=== PATIENT | female | born 1990 | race Caucasian/White ===

== ENCOUNTER 2021-08-24 12:45 | Inpatient (IN) | payer OTHER ==
[~2021-08-24] VITALS: Ht 165.1 cm; Wt 91.7 kg
[2021-08-24] MEDS: **hydrALAZINE HCL** 25 MG TAB PO SCH ×3 (12:00→23:47)
[2021-08-24] MEDS ORDERED: ONDANSETRON 4 MG TAB PO PRN (12:50)
[2021-08-24] MEDS ORDERED: ACETAMINOPHEN TAB 650MG DOSE (2X325MG) PO PRN (12:50)
[2021-08-24 13:15] VITALS: BP 169/112
[2021-08-24] MEDS ORDERED: ASPI81CH33 PO (13:26)
[2021-08-24] MEDS ORDERED: ENOX40IN3 SC (13:26)
[2021-08-24] MEDS ORDERED: AMLO1TAB25 PO (13:26)
[2021-08-24] MEDS ORDERED: DOCU100C16 PO (13:26)
[2021-08-24] MEDS ORDERED: DICL1GEL TOP (13:26)
[2021-08-24] MEDS ORDERED: HYDR-3490 PO (13:26)
[2021-08-24] MEDS ORDERED: PLAV1TAB2 PO (13:26)
[2021-08-24] MEDS ORDERED: MIRT1TAB PO (13:26)
[2021-08-24] MEDS ORDERED: ATOR80TA59 PO (13:26)
[2021-08-24] MEDS ORDERED: LISI40TA4 PO (13:26)
[2021-08-24] MEDS ORDERED: CARV6.25 PO (13:26)
[2021-08-24 14:00] VITALS: BP 160/100
--- NOTE | 2021-08-24 14:00 | HPEPDOC ---
Global Logistics Manager Note DATE OF ADMISSION: 08-24-21 DATE OF SERVICE: 08-24-21 TIME OF ADMISSION: Please refer to physician's admission order. SOURCE OF ADMISSION INFORMATION: [facility] record and patient CHIEF COMPLAINT: right MCA stroke with hemiparesis HISTORY OF PRESENT ILLNESS: 31F pmh obesity, current smoker, HTN (non-compliant with meds), HLD, ETOH-use disorder presented to [facility] on 08-14-21 with LUE weakness and paresthesias with difficulty speaking. She was diagnosed with a right piña radiate ischemic infarct in the setting of hypertensive emergency. She was given IV blood pressure medications, started on ASA and Plavix and followed by cariology for difficult to control blood pressures. She was diagnosed with pro bable sleep apnea and given a CPAP machine. ECHO was performed showing no interatrial shunt and signs of heart failure. She endorsed a feeling of depression and was evaluated by Psychiatry who started her on Remeron. She had persistent functional limitations in her left arm and difficulty with mobility and deemed medically appropriate for discharge to ARU on 08-24-21 REVIEW OF SYSTEMS: The following is a completed review of systems and has been reviewed. Review of systems otherwise unremarkable. PAIN: Patient self reports no pain EYES: No recent vision changes EARS, NOSE, & THROAT: No throat pain, or dysphagia, or rhinorrhea CARDIOVASCULAR: Denies chest pain or palpitations PULMONARY: Denies shortness of breath GASTROINTESTINAL: Denies constipation/diarrhea GENITOURINARY: denies dysuria MUSCULOSKELETAL: left sided hemiparesis NEUROLOGICAL:left sided hemiparesis with paresthesias HEMATOLOGICAL: denies easy bruising SKIN: denies rash PSYCHIATRIC: +depressed All other review of systems found to be negative. PAST MEDICAL HISTORY: as per HPI PAST SURGICAL HISTORY: none ALLERGIES: Please see below. MEDICATIONS: Please see below. FAMILY HISTORY: Cardiac SOCIAL HISTORY: Daily etoh/smoking/marijuana DIET:low sodium PHYSICAL EXAMINATION: VITAL SIGNS: Please see below. GENERAL: Flat affect, cooperative. No acute distress. HEENT: [PERRL. Extraocular movements intact. Clear conjunctiva, no significant facial droop CARDIOVASCULAR: Regular rate and rhythm. No murmurs, rubs, or gallops LUNGS: Clear to auscultation bilaterally. No wheezes. No rhonchi ABDOMEN: Soft, nontender, nondistended. Positive bowel sounds. Normal active bowel sounds NEUROLOGICAL: Alert and oriented times three. Cranial nerves II through XII grossly intact. Sensation decreased to light touch in non-dermatomal pattern LUE EXTREMITIES: 5\5 strength RUE, 3/5 strength LUE 5\5 strength right lower extremity. 5/5 strength in left lower extremity. LABORATORY DATA: Please see below. IMAGING:Imaging documentation personally reviewed by record FUNCTIONAL STATUS: Premorbid: Independent with all activities of daily life as well as mobility On Admission: Min assist for bed mobility, functional transfers, ambulation, dressing, toileting GOALS: Mod-I for bed mobility, functional transfers, ambulation, dressing, toile ting, bathing ASSESSMENT:31-year-old F with past medical history of HTN and HLD who presents status post right MCA ischemic stroke PLAN: 1. REhab- PT/OT advance mobility and ADls, strengthen/stretch/maintain rom all 4 limbs, eval for LUE bracing -MELT DOWN FURNACE OPERATOR for cog and swallow 2. Neuro- s/p right MCA ischemic infarct in setting of hypertensive emergency, cont optimal BP management and secondary stroke prevention measures of ASAmg daily and Plavix 75mg daily (21 days total), cont statin -CPAP for sleep apnea 3. cArdiac- hx of HTN cont BP meds, hydalazine ordered as well -HLD cont statin -obesity, will refer to gps field data collector for weight loss -medicine consulted to assist in overall management 4. Resp- probable SHIRLEY, CPAP at night, will need referral for CPAP machine upon d/c -monitor for infection 5. GI ppx- protonix 6. DVT ppx- heparin and TEDs 7. Psych cont Remeron for depression/insomnia 8. Pain- tyleneol prn 9. DIspo- TBD POST ADMISSION PHYSICIAN EVALUATION: Medical and functional status: Description of medical status, medical assessment: As above. Rehabilitation diagnosis and current and prior cold morbid medical conditions as above. Risk of complications and plans to mitigate them as above. Description of functional status current status is as above. Prior status as above. Status compared to preadmission: There are no clinically significant differences between the patient's current status and the information described on the preadmission screening document. Treatment plan anticipated: Treatment plan is as described above. Required disciplines including physical therapy, occupational therapy, others as noted above. Intensity of services: 3 hours a day, 6 days a week. Special considerations: There are no specific special or safety considerations that would likely preclude immediate implementation of an intensive rehabilitation program or subsequently influence the plan of care. ATTESTATION: Considering all the information above, it is my best judgment that this patient requires intensive rehabilitation therapy as described above and an inpatient hospital environment due to the complexity of nursing, medical, and rehabilitation needs required by the patient. Furthermore, this patient can reasonably be expected to participate in an benefit from an inpatient rehabilitation stay with an interdisciplinary team approach to the delivery of rehabilitation care under the direction and supervision of rehabilitation physician. PROGNOSIS: good ESTIMATED LENGTH OF STA: 10-14 days. PROJECTED DISCHARGE DESTINATION: Home with family support and any durable medical equipment required to increase functional safety and mobility. TIME SPENT COUNSELING AND COORDINATING INITIAL CARE: Greater than 70 minutes. Vital Signs Vital Signs Date Time Temp Pulse Resp B/P (MAP) Pulse Ox O2 Delivery O2 Flow Rate FiO2 08/24/21 14:00 96.9 85 18 160/100 (120) 96 Home Medications Scheduled Amlodipine Besylate (Amlodipine Besylate) 10 Mg Tablet, 10 MG PO DAILY, (Reported) Aspirin (Aspirin) 81 Mg Tab.chew, 81 MG PO DAILY, (Reported) Atorvastatin Calcium (Atorvastatin Calcium) 80 Mg Tablet, 80 MG PO QHS, (Reported) Carvedilol (Carvedilol) 6.25 Mg Tablet, 6.25 MG PO BID, (Reported) Clopidogrel Bisulfate (Plavix) 75 Mg Tablet, 75 MG PO DAILY, (Reported) Diclofenac Sodium (Diclofenac Sodium) 3% 100GM Gel..gram., 1 APLCT TOP QID, (Reported) APPLY TO AFFECTED AREAS ON BACK Docusate Sodium (Docusate Sodium) 100 Mg Capsule, 100 MG PO BID, (Reported) Enoxaparin Sodium (Enoxaparin Sodium) 40 Mg/0.4 Ml Syringe, 40 MG SC DAILY, (Reported) Hydrochlorothiazide (Hydrochlorothiazide) 25 Mg Tablet, 25 MG PO DAILY, (Reported) Lisinopril (Lisinopril) 40 Mg Tablet, 40 MG PO DAILY, (Reported) Mirtazapine (Mirtazapine) 7.5 Mg Tablet, 7.5 MG PO QHS, (Reported) Allergies Coded Allergies: No Known Allergies (Unverified , 08/24/21) A-FIB/CHADSVASC A-FIB History Current/History of A-Fib/PAF?: No Current PO Anticoag Therapy: No DONAHUE-JOCELYNE,ROBEL MD Aug 24, 2021 14:00
[2021-08-24] MEDS: REMEDY PHYTOPLEX Z-GUARD PASTE 113GM TUBE (FROM STOREROOM PRODUCT) TOP SCH ×2 (16:00→21:00)
[2021-08-24] MEDS: THIAMINE 100 MG TAB PO SCH (17:00)
[2021-08-24] MEDS: PANTOPRAZOLE 40MG TAB (PROTONIX) PO SCH (17:00)
[2021-08-24 20:00] VITALS: BP 134/98
[2021-08-24] MEDS: SENNA 8.6 MG TAB (SENOKOT) PO SCH (21:00)
[2021-08-24] MEDS: DOCUSATE SODIUM 100MG CAPSULE PO SCH (21:00)
[2021-08-24] MEDS: CARVedilol 6.25 MG TAB PO SCH (21:19)
[2021-08-24] MEDS: MIRTAZAPINE 7.5MG PER 1/2 TABLET PO SCH (21:20)
[2021-08-24] MEDS: ATORVASTATIN 20 MG TAB PO SCH (21:20)
[2021-08-25] MEDS: **hydrALAZINE HCL** 25 MG TAB PO SCH ×3 (05:44→18:20)
[2021-08-25 06:00] VITALS: BP 139/96
[2021-08-25 08:08] LABS: BASO # 0.1 10^3/uL (0.0-0.2); BASO % 0.9 % (0.0-1.0); EOS # 0.3 10^3/uL (0.0-0.5); EOS % 2.9 % (0.0-3.0); HEMATOCRIT 53.1 % (36.0-47.0); HEMOGLOBIN 17.2 g/dl (12.0-15.5); LYMPH # 2.3 10^3/uL (1.5-5.0); LYMPH % 23.2 % (24.0-44.0); MEAN CORPUSCULAR HEMOGLOBIN 28.3 pg (27.0-33.0); MEAN CORPUSCULAR HGB CONC 32.4 g/dl (32.0-36.5); MEAN CORPUSCULAR VOLUME 87.3 fl (80.0-96.0); MONO % 9.4 % (2.0-8.0); NEUTROPHILS # 6.4 10^3/uL (1.5-8.5); NEUTROPHILS % 63.3 % (36.0-66.0); PLATELET COUNT, AUTOMATED 294 10^3/uL (150-450); RED BLOOD COUNT 6.08 10^6/uL (4.00-5.40); WHITE BLOOD COUNT 10.1 10^3/uL (4.0-10.0)
[2021-08-25 08:26] LABS: ALBUMIN 3.8 GM/DL (3.2-5.2); ALT/SGPT 56 U/L (12-78); BILIRUBIN,TOTAL 0.5 MG/DL (0.2-1.0); BLOOD UREA NITROGEN 32 MG/DL (7-18); CALCIUM LEVEL 10.1 MG/DL (8.5-10.1); CARBON DIOXIDE LEVEL 28 MEQ/L (21-32); CHLORIDE LEVEL 103 MEQ/L (98-107); CREATININE FOR GFR 1.08 MG/DL (0.55-1.30); GLOMERULAR FILTRATION RATE > 60.0 (>60); GLUCOSE, FASTING 98 MG/DL (70-100); POTASSIUM SERUM 4.6 MEQ/L (3.5-5.1); SODIUM LEVEL 137 MEQ/L (136-145); TOTAL PROTEIN 7.3 GM/DL (6.4-8.2)
[2021-08-25] MEDS: REMEDY PHYTOPLEX Z-GUARD PASTE 113GM TUBE (FROM STOREROOM PRODUCT) TOP SCH ×3 (09:00→21:00)
[2021-08-25] MEDS: DOCUSATE SODIUM 100MG CAPSULE PO SCH ×2 (09:00→21:00)
[2021-08-25] MEDS ORDERED: HEPARIN SOD (PORCINE) 5000UNITS/ML 1ML VIAL/SYRINGE SC SCH (09:00)
[2021-08-25] MEDS: ASPIRIN 81MG ENTERIC TABLET PO SCH (09:14)
[2021-08-25] MEDS: CLOPIDOGREL 75 MG TAB PO SCH (09:14)
[2021-08-25] MEDS: CARVedilol 6.25 MG TAB PO SCH ×2 (09:14→21:04)
[2021-08-25] MEDS: PANTOPRAZOLE 40MG TAB (PROTONIX) PO SCH (09:14)
[2021-08-25] MEDS: lisinopriL 40 MG TAB PO SCH (09:14)
[2021-08-25] MEDS: THIAMINE 100 MG TAB PO SCH (09:14)
--- NOTE | 2021-08-25 10:00 | IPNPDOC ---
PM&R Progress Note Distance Learning Program Coordinator Progress Note DATE OF ADMISSION: Aug 24, 2021 at 12:52 INPATIENT REHABILITATION ADMISSION DAY: # SUBJECTIVE: Patient is a -year-old with . ALLERGIES: See Below MEDICATIONS: Reviewed, see below. OBJECTIVE: VITAL SIGNS: Please see below. PHYSICAL EXAMINATION: GENERAL: [Cachectic, well developed, sitting up in bed, no acute distress]. HEENT: [Normocephalic, atraumatic]. [No facial droop]. [Poor dentition, missing teeth. PERRL, EOMI]. CARDIOVASCULAR: [S1, S2, irregular rate]. [No lower limb edema or calf tenderness]. LUNGS: [Decreased breath sounds, coarse throughout]. ABDOMEN: [Soft, nontender, nondistended. Normoactive bowel sounds throughout]. MUSCULOSKELETAL: MMT: /5 strength proximally bilateral shoulder abduction, forward flexion and bilateral hip flexion. /5 strength bilateral elbow flexion, knee flexion, /5 bilateral elbow extension and knee extension. /5 reel fed printer, dorsiflexion, plantar flexion. NEUROLOGICAL: [Alert and oriented times three]. [Answers all question appropriately]. SKIN: . LABORATORY DATA: Reviewed. Please see below. MICROBIOLOGY: Please see below. IMAGING: ASSESSMENT AND PLAN: 1. . 2. . 3. . TIME SPENT: Chart Review, examination and documentation minutes. Allergies Coded Allergies: No Known Allergies (Unverified , 08/24/21) Vital Signs Vital Signs Date Time Temp Pulse Resp B/P (MAP) Pulse Ox O2 Delivery O2 Flow Rate FiO2 08/25/21 09:14 139/96 08/25/21 06:00 97.4 85 20 98 Room Air Laboratory Data CBC/BMP Laboratory Tests 08/25/21 07:47 Labs 24H Laboratory Tests 2 08/25/21 07:47: Immature Granulocyte % (Auto) 0.3, Neutrophils (%) (Auto) 63.3, Lymphocytes (%) (Auto) 23.2L, Monocytes (%) (Auto) 9.4H, Eosinophils (%) (Auto) 2.9, Basophils (%) (Auto) 0.9, Neutrophils # (Auto) 6.4, Lymphocytes # (Auto) 2.3, Monocytes # (Auto) 1.0H, Eosinophils # (Auto) 0.3, Basophils # (Auto) 0.1, Nucleated Red Blood Cells % (auto) 0.0, Anion Gap 6L, Glomerular Filtration Rate > 60.0, Calcium Level 10.1, Total Bilirubin 0.5, Aspartate Amino Transf (AST/SGOT) 27, Alanine Aminotransferase (ALT/SGPT) 56, Alkaline Phosphatase 83, Total Protein 7.3, Albumin 3.8, Albumin/Globulin Ratio 1.1L Current Medications Current Medications Current Medications Medications (Trade) Dose Ordered Sig/Oanh Route PRN Reason Start Time Stop Time Status Last Admin Dose Admin Acetaminophen (Tylenol Tab) 650 mg Q4HP PRN PO fever/MILD PAIN (PS 1-4) 08/24/21 12:50 Amlodipine Besylate (Norvasc) 10 mg DAILY PO 08/25/21 09:00 08/25/21 09:14 Aspirin (Ecotrin) 81 mg DAILY PO 08/25/21 09:00 08/25/21 09:14 Atorvastatin Calcium (Lipitor) 80 mg QHS PO 08/24/21 21:00 08/24/21 21:20 Carvedilol (COReg) 6.25 mg BID PO 08/24/21 21:00 08/25/21 09:14 Clopidogrel Bisulfate (PLAVix) 75 mg DAILY PO 08/25/21 09:00 08/25/21 09:14 Docusate Sodium (Colace) 100 mg BID PO 08/24/21 21:00 Heparin Sodium (Porcine) (Heparin) 5,000 units Q12H SC 08/25/21 09:00 08/25/21 09:15 Hydralazine HCl (Apresoline) 25 mg Q6H PO 08/24/21 12:00 08/25/21 05:44 Hydrochlorothiazide (Hydrodiuril) 25 mg DAILY PO 08/25/21 09:00 08/25/21 09:14 Lisinopril (Prinivil) 40 mg DAILY PO 08/25/21 09:00 08/25/21 09:14 Mirtazapine (Remeron) 7.5 mg QHS PO 08/24/21 21:00 08/24/21 21:20 Ondansetron HCl (Zofran) 4 mg Q6HP PRN PO NAUSEA 08/24/21 12:50 Pantoprazole Sodium (Protonix) 40 mg DAILY PO 08/24/21 09:00 08/25/21 09:14 Senna (Senokot) 1 tab QHS PO 08/24/21 21:00 Thiamine HCl (Thiamine HCl) 100 mg DAILY PO 08/24/21 09:00 08/25/21 09:14 ROBEL GUZMAN MD Aug 25, 2021 09:59
[2021-08-25 14:00] VITALS: BP 124/85
[2021-08-25] MEDS ORDERED: ALPRAZolam 0.25 MG TAB PO PRN (17:15)
[2021-08-25] MEDS ORDERED: ALPRAZolam 0.5 MG TAB PO ONE (17:15)
[2021-08-25 21:00] VITALS: BP 145/90
[2021-08-25] MEDS: SENNA 8.6 MG TAB (SENOKOT) PO SCH (21:00)
[2021-08-25] MEDS: MIRTAZAPINE 7.5MG PER 1/2 TABLET PO SCH (21:03)
[2021-08-25] MEDS: ATORVASTATIN 20 MG TAB PO SCH (21:03)
[2021-08-26] MEDS: **hydrALAZINE HCL** 25 MG TAB PO SCH ×4 (00:17→17:23)
[2021-08-26 06:00] VITALS: BP 118/68
[2021-08-26] MEDS: DOCUSATE SODIUM 100MG CAPSULE PO SCH ×2 (07:52→20:11)
[2021-08-26] MEDS: ASPIRIN 81MG ENTERIC TABLET PO SCH (08:31)
[2021-08-26] MEDS: PANTOPRAZOLE 40MG TAB (PROTONIX) PO SCH (08:31)
[2021-08-26] MEDS: lisinopriL 40 MG TAB PO SCH (08:32)
[2021-08-26] MEDS: REMEDY PHYTOPLEX Z-GUARD PASTE 113GM TUBE (FROM STOREROOM PRODUCT) TOP SCH ×3 (08:32→20:12)
[2021-08-26] MEDS: CLOPIDOGREL 75 MG TAB PO SCH (08:32)
[2021-08-26] MEDS: THIAMINE 100 MG TAB PO SCH (08:32)
[2021-08-26] MEDS: CARVedilol 6.25 MG TAB PO SCH ×2 (08:32→20:46)
--- NOTE | 2021-08-26 10:36 | IPNPDOC ---
PM&R Progress Note Tabulating Supervisor Progress Note DATE OF ADMISSION: Aug 24, 2021 at 12:52 INPATIENT REHABILITATION ADMISSION DAY: # SUBJECTIVE: Patient is a -year-old with . ALLERGIES: See Below MEDICATIONS: Reviewed, see below. OBJECTIVE: VITAL SIGNS: Please see below. PHYSICAL EXAMINATION: GENERAL: [Cachectic, well developed, sitting up in bed, no acute distress]. HEENT: [Normocephalic, atraumatic]. [No facial droop]. [Poor dentition, missing teeth. PERRL, EOMI]. CARDIOVASCULAR: [S1, S2, irregular rate]. [No lower limb edema or calf tenderness]. LUNGS: [Decreased breath sounds, coarse throughout]. ABDOMEN: [Soft, nontender, nondistended. Normoactive bowel sounds throughout]. MUSCULOSKELETAL: MMT: /5 strength proximally bilateral shoulder abduction, forward flexion and bilateral hip flexion. /5 strength bilateral elbow flexion, knee flexion, /5 bilateral elbow extension and knee extension. /5 nursing informatics specialist, dorsiflexion, plantar flexion. NEUROLOGICAL: [Alert and oriented times three]. [Answers all question appropriately]. SKIN: . LABORATORY DATA: Reviewed. Please see below. MICROBIOLOGY: Please see below. IMAGING: ASSESSMENT AND PLAN: 1. . 2. . 3. . TIME SPENT: Chart Review, examination and documentation minutes. Allergies Coded Allergies: No Known Allergies (Unverified , 08/24/21) Vital Signs Vital Signs Date Time Temp Pulse Resp B/P (MAP) Pulse Ox O2 Delivery O2 Flow Rate FiO2 08/26/21 08:32 64 118/68 08/26/21 06:00 97.3 16 99 Room Air Current Medications Current Medications Current Medications Medications (Trade) Dose Ordered Sig/Oanh Route PRN Reason Start Time Stop Time Status Last Admin Dose Admin Acetaminophen (Tylenol Tab) 650 mg Q4HP PRN PO fever/MILD PAIN (PS 1-4) 08/24/21 12:50 Alprazolam (Xanax) 0.25 mg Q8HP PRN PO ANXIETY 08/25/21 17:15 08/25/21 21:03 Amlodipine Besylate (Norvasc) 10 mg DAILY PO 08/25/21 09:00 08/26/21 08:32 Aspirin (Ecotrin) 81 mg DAILY PO 08/25/21 09:00 08/26/21 08:31 Atorvastatin Calcium (Lipitor) 80 mg QHS PO 08/24/21 21:00 08/25/21 21:03 Carvedilol (COReg) 6.25 mg BID PO 08/24/21 21:00 08/26/21 08:32 Clopidogrel Bisulfate (PLAVix) 75 mg DAILY PO 08/25/21 09:00 08/26/21 08:32 Docusate Sodium (Colace) 100 mg BID PO 08/24/21 21:00 Heparin Sodium (Porcine) (Heparin) 5,000 units Q12H SC 08/25/21 09:00 08/25/21 13:05 DC 08/25/21 09:15 Hydralazine HCl (Apresoline) 25 mg Q6H PO 08/24/21 12:00 08/26/21 00:17 Hydrochlorothiazide (Hydrodiuril) 25 mg DAILY PO 08/25/21 09:00 08/26/21 08:32 Lisinopril (Prinivil) 40 mg DAILY PO 08/25/21 09:00 08/26/21 08:32 Mirtazapine (Remeron) 7.5 mg QHS PO 08/24/21 21:00 08/25/21 21:03 Ondansetron HCl (Zofran) 4 mg Q6HP PRN PO NAUSEA 08/24/21 12:50 Pantoprazole Sodium (Protonix) 40 mg DAILY PO 08/24/21 09:00 08/26/21 08:31 Senna (Senokot) 1 tab QHS PO 08/24/21 21:00 Thiamine HCl (Thiamine HCl) 100 mg DAILY PO 08/24/21 09:00 08/26/21 08:32 ROBEL GUZMAN MD Aug 26, 2021 10:36
[2021-08-26 11:10] VITALS: BP 136/103
[2021-08-26] MEDS ORDERED: hydrOXYzine 25 MG TAB PO PRN (13:45)
[2021-08-26 14:00] VITALS: BP 146/94
[2021-08-26] MEDS ORDERED: THIA100TA PO (15:12)
[2021-08-26] MEDS ORDERED: ATOR80TA59 PO (15:12)
[2021-08-26] MEDS ORDERED: HYDR-3363 PO (15:12)
[2021-08-26] MEDS ORDERED: ASPI81CH33 PO (15:12)
[2021-08-26] MEDS ORDERED: HYDR-3490 PO (15:12)
[2021-08-26] MEDS ORDERED: PLAV1TAB2 PO (15:12)
[2021-08-26] MEDS ORDERED: CARV6.25 PO (15:12)
[2021-08-26] MEDS ORDERED: MIRT1TAB PO (15:12)
[2021-08-26] MEDS ORDERED: AMLO1TAB25 PO (15:12)
[2021-08-26] MEDS ORDERED: HYDR25TA PO (15:12)
[2021-08-26] MEDS ORDERED: LISI40TA4 PO (15:12)
--- NOTE | 2021-08-26 17:20 | CR.PDOC ---
General Date of Consultation: Aug 26, 2021 Consultation REASON FOR CONSULTATION/CHIEF COMPLAINT: CVA. HISTORY OF PRESENT ILLNESS: Patient is a pleasant 31-year-old female with a past medical history of obesity hypertension, noncompliant, alcohol use disorder, hyperlipidemia, nicotine dependence. She [place] [facility] [place] [facility] [facility] system. She was admitted to Health system on 08/14/2021 with left upper extremity weakness and paresthesias with slurred speech. She was ultimately diagnosed with a right piña radiata ischemic infarct believed to be due to hypertensive emergency. Once her blood pressure was controlled she was started on aspirin and Plavix. She was evaluated for cardiology and neuro to assist with controlling her hypertension. She was provided with a CPAP machine due to underlying suspected SHIRLEY. Finally patient's echo showed no intra-arterial shunt or intracardiac thrombus. At the time my evaluation patien t denies any chest pain palpitations shortness of breath nausea vomiting diarrhea. She states that she drinks a sixpack of beer per day along with occasional hard alcohol. She has never suffered alcohol withdrawal seizures or delirium tremens. ALLERGIES: Please see below. HOME MEDICATIONS: Please see below. PAST MEDICAL HISTORY: Hypertension with history of medication noncompliance Nicotine dependence Alcohol use disorder Depression PAST SURGICAL HISTORY: section FAMILY HISTORY: Reviewed with patient no pertinent family history was provided SOCIAL HISTORY: Nicotine dependence Alcohol use disorder Marijuana use REVIEW OF SYSTEMS: 10 point ROS conducted, relevant findings are noted in the HPI PHYSICAL EXAMINATION: VITAL SIGNS: please see below General: NAD, comfortable HEENT: PERRLA, EOMI, sclerae clear Neck: supple, normal ROM, no JVD Respiratory: lungs CTAB, no wheeze, no rales, no crackles CVS: RRR, normal S1, S2, no murmurs Abdo: soft, no masses, no hepatosplenomegaly, BS+, no rebound tenderness Extremities: no edema, pulses 2+ MSK: no joint deformities, normal ROM Neuro: no focal neuro deficits, moving all 4 extremities, CN2-12 intact. 3/5 strength in LUE. 5/5 strength in RUE, RLE, LLE. Psych: calm, cooperative, AAO x 3 LABORATORY DATA: Please see below. ASSESSMENT/PLAN: #right piña radiata ischemic infarct - likely 2/2 HTN urgency - residual deficit is weakness in LUE, 3/5 strength - maintain BP < 140/80 - c/w ASA, plavix and statin - c/w rehab in ARU #ETOH use disorder - monitor for withdrawal - has been admitted in a healthcare facility since 08/14/21, low risk of withdrawal #HTN, with hx of emergency - c/w lisinopril 40 mg PO daily - c/w amlodipine 10 mg daily - c/w coreg 6.25 mg BID - c/w hydralazine 25 mg PO q6h #Depression - was started on remeron #SHIRLEY - c/w CPAP #Obesity - agree with dietary eval #GI ppx: protonix. DVT pp: SCDs. TEDs. Vital Signs/I&O Vital Signs Date Time Temp Pulse Resp B/P (MAP) Pulse Ox O2 Delivery O2 Flow Rate FiO2 08/26/21 14:00 97.3 91 16 146/94 (111) 98 Room Air I&O- Last 24 Hours up to 6 AM 08/26/21 06:00 Intake Total 900 ml Balance 900 ml Allergies Coded Allergies: No Known Allergies (Unverified , 08/24/21) Home Medications Scheduled Amlodipine Besylate (Amlodipine Besylate) 10 Mg Tablet, 10 MG PO DAILY, #30 Aspirin (Aspirin) 81 Mg Tab.chew, 81 MG PO DAILY, #30 Atorvastatin Calcium (Atorvastatin Calcium) 80 Mg Tablet, 80 MG PO QHS, #30 Carvedilol (Carvedilol) 6.25 Mg Tablet, 6.25 MG PO BID, #60 Clopidogrel Bisulfate (Plavix) 75 Mg Tablet, 75 MG PO DAILY, #9 Hydralazine HCl (Hydralazine HCl) 25 Mg Tablet, 25 MG PO BID, #60 Hydrochlorothiazide (Hydrochlorothiazide) 25 Mg Tablet, 25 MG PO DAILY, #30 Lisinopril (Lisinopril) 40 Mg Tablet, 40 MG PO DAILY, #30 Mirtazapine (Mirtazapine) 7.5 Mg Tablet, 7.5 MG PO QHS, #30 Thiamine Hcl (Vitamin B-1) 100 Mg Tablet, 100 MG PO DAILY, #30 Scheduled PRN Hydroxyzine HCl (Hydroxyzine HCl) 25 Mg Tablet, 25 MG PO Q6HP PRN for ANXIETY, #120 PHYLLIS DE ANDA MD Aug 26, 2021 17:20
[2021-08-26 17:22] VITALS: BP 137/96
[2021-08-26 20:00] VITALS: BP 133/86
[2021-08-26] MEDS: SENNA 8.6 MG TAB (SENOKOT) PO SCH (20:11)
[2021-08-26] MEDS: MIRTAZAPINE 7.5MG PER 1/2 TABLET PO SCH (20:46)
[2021-08-26] MEDS: ATORVASTATIN 20 MG TAB PO SCH (20:46)
[2021-08-27] MEDS: **hydrALAZINE HCL** 25 MG TAB PO SCH ×3 (00:50→12:15)
[2021-08-27 06:00] VITALS: BP 127/81
[2021-08-27] MEDS: DOCUSATE SODIUM 100MG CAPSULE PO SCH (08:29)
[2021-08-27] MEDS: REMEDY PHYTOPLEX Z-GUARD PASTE 113GM TUBE (FROM STOREROOM PRODUCT) TOP SCH (08:32)
[2021-08-27] MEDS: PANTOPRAZOLE 40MG TAB (PROTONIX) PO SCH (08:33)
[2021-08-27] MEDS: ASPIRIN 81MG ENTERIC TABLET PO SCH (08:33)
[2021-08-27] MEDS: CLOPIDOGREL 75 MG TAB PO SCH (08:33)
[2021-08-27] MEDS: THIAMINE 100 MG TAB PO SCH (08:33)
[2021-08-27] MEDS: lisinopriL 40 MG TAB PO SCH (08:34)
[2021-08-27] MEDS: CARVedilol 6.25 MG TAB PO SCH (08:34)
[2021-08-27 12:15] VITALS: BP 154/79
--- NOTE | 2021-08-27 12:45 | IPNPDOC ---
Text Note Date of Service The patient was seen on 08/27/21. NOTE Patient seen and examined. No acute events overnight PHYSICAL EXAMINATION: General: NAD, comfortable HEENT: PERRLA, EOMI, sclerae clear Neck: supple, normal ROM, no JVD Respiratory: lungs CTAB, no wheeze, no rales, no crackles CVS: RRR, normal S1, S2, no murmurs Abdo: soft, no masses, no hepatosplenomegaly, BS+, no rebound tenderness Extremities: no edema, pulses 2+ MSK: no joint deformities, normal ROM Neuro: no focal neuro deficits, moving all 4 extremities, CN2-12 intact. 3/5 strength in LUE. 5/5 strength in RUE, RLE, LLE. Psych: calm, cooperative, AAO x 3 LABORATORY DATA: Please see below. ASSESSMENT/PLAN: Patient is a pleasant 31-year-old female with a past medical history of obesity hypertension, noncompliant, alcohol use disorder, hyperlipidemia, nicotine dependence. She was [facility] on 08/24/2021 from a [facility]. She was admitted to [facility] on 08/14/2021 with left upper extremity weakness and paresthesias with slurred speech. She was ultimately diagnosed with a right piña radiata ischemic infarct believed to be due to hypertensive emergency. Once her blood pressure was controlled she was started on aspirin and Plavix. She was evaluated by cardiology and neuro to assist with controlling her hypertension. She was provided with a CPAP machine due to underlying suspected SHIRLEY. Finally patient's echo showed no intra-arterial shunt or intracardiac thrombus. Patient has been admitted to the ARU and we have been consulted for medical management #right piña radiata ischemic infarct - likely 2/2 HTN urgency - residual deficit is weakness in LUE, 3/5 strength - maintain BP < 140/80 - c/w ASA, plavix and statin - c/w rehab in ARU #ETOH use disorder - monitor for withdrawal - has been admitted in a healthcare facility since 08/14/21, low risk of withdrawal #HTN, with hx of emergency - c/w lisinopril 40 mg PO daily - c/w amlodipine 10 mg daily - c/w coreg 6.25 mg BID - c/w hydralazine 25 mg PO q6h #Depression - was started on remeron #SHIRLEY - c/w CPAP #Obesity - agree with dietary eval GI ppx: protonix. DVT pp: SCDs. TEDs. Disposition as per ARU VS,Fishbone, I+O VS, Fishbone, I+O Vital Signs Date Time Temp Pulse Resp B/P (MAP) Pulse Ox O2 Delivery O2 Flow Rate FiO2 08/27/21 08:33 61 150/66 08/27/21 06:00 98.0 18 100 Room Air I&O- Last 24 Hours up to 6 AM 08/27/21 06:00 Intake Total 340 ml Balance 340 ml ELOY HE MD Aug 27, 2021 12:45
== END 2021-08-27 14:15 | disposition home or self-care (01) | DRG 58 ==
LOC: M PM&R 12:52
PROVIDERS: ADMIT Physical Medicine & Rehabilitation; ATTEND Physical Medicine & Rehabilitation
DX: I69.351 Hemiplegia and hemiparesis following cerebral infarction affecting right dominant side (principal); E66.9 Obesity, unspecified; F17.200 Nicotine dependence, unspecified, uncomplicated; I10 Essential (primary) hypertension; E78.5 Hyperlipidemia, unspecified; F10.10 Alcohol abuse, uncomplicated; G47.30 Sleep apnea, unspecified; F32.A Depression, unspecified; Z74.09 Other reduced mobility; Z79.02 Long term (current) use of antithrombotics/antiplatelets; Z79.82 Long term (current) use of aspirin; Z79.899 Other long term (current) drug therapy; Z91.19 Patient's noncompliance with other medical treatment and regimen